=== PATIENT | male | born 2000 | race Two or more races ===

== ENCOUNTER 2025-08-08 06:05 | Emergency (ER) | payer OTHER ==
[~2025-08-08] VITALS: Ht 165.1 cm; Wt 65.8 kg
[2025-08-08 08:09] LABS: BASO % 0.3 % (0.1-1.2); EOS # 0.01 (0.04-0.54); EOS % 0.2 % (0.7-7.0); LYMPH # 0.86 (1.18-3.74); LYMPH % 13.6 % (19.3-53.1); MEAN PLATELET VOLUME 10.30 fl (9.4-12.4); MONO # 0.37 (0.24-0.82); MONO % 5.8 % (4.7-12.5); NEUT # 5.06 (1.56-6.13); NEUT % 79.9 % (34.0-71.1); RED CELL DISTRIBUTION WIDTH 11.9 % (11.6-14.4)
[2025-08-08 08:33] LABS: ALT/SGPT 104.0 U/L (12-78); AST/SGOT 74.0 U/L (15-37); BILIRUBIN TOTAL 0.62 mg/dL (0.3-1.2); BUN CREA RATIO 15.0 (7.0-25.0); CREATININE SERUM 0.94 mg/dL (0.70-1.30); GFR 98.6; GLOBULINA 4.0 G/DL (2.4-3.5); GLUCOSE FASTING 89.0 mg/dL (65-100); OSMOLALITY SERUM 283.0 MOSM/KG (275-295)
[2025-08-08 08:45] LABS: INR 0.98
[2025-08-08 09:30] LABS: URINE APPEARANCE Clear; URINE BILIRRUBIN Negative (NEGATIVE); URINE BLOOD Negative; URINE COLOR Yellow; URINE GLUCOSE Negative (NEGATIVE); URINE KETONE Trace (NEGATIVE); URINE LEUKOCYTE Negative; URINE NITRATE Negative; URINE PROTEIN Negative (NEGATIVE); URINE UROBILINOGEN 0.2 E.U./dl
[2025-08-08 09:35] LABS: URINE BACTERIA 4.5 uL (0.0-1933); URINE WBC 5.5 uL (0.0-23.2)
[2025-08-08 09:50] LABS: URINE CAST 0.00 uL (0.0-1.40); URINE EPITHELIAL CELLS 0.9 uL (0.0-38.8); URINE RBC 1.4 uL (0.0-20.8)
[2025-08-08] MEDS ORDERED: ONDANSETRON HCL 2 MG/ML VIAL IV STA (11:48)
[2025-08-08] MEDS ORDERED: 0.9 % SODIUM CHLORIDE 1,000 ML IV STA (11:48)
[2025-08-08] MEDS ORDERED: DEXAMETHASONE SODIUM PHOSPHATE 4 MG/ML VIAL IM STA (11:49)
[2025-08-08] MEDS ORDERED: MULTIVIT INFUSN,ADULT 4,VIT K 10 ML in DEXTROSE 5 % IN WATER 500 ML IV STA (11:49)
[2025-08-08] MEDS ORDERED: ORPHENADRINE CITRATE 30 MG/ML AMPUL IM STA (11:49)
[2025-08-08] MEDS ORDERED: FAMOTIDINE/PF 20 MG/2 ML VIAL IV STA (11:49)
[2025-08-08] MEDS ORDERED: KETOROLAC TROMETHAMINE 30 MG VIAL IM ONE (12:00)
[2025-08-08] MEDS ORDERED: ONDANSETRON HCL 2 MG/ML VIAL ONE (12:33)
[2025-08-08] MEDS ORDERED: ORPHENADRINE CITRATE 30 MG/ML AMPUL ONE (12:33)
[2025-08-08] MEDS ORDERED: KETOROLAC TROMETHAMINE 30 MG VIAL ONE (12:33)
[2025-08-08] MEDS ORDERED: DEXAMETHASONE SODIUM PHOSPHATE 4 MG/ML VIAL ONE ×2 (12:33→12:40)
[2025-08-08] MEDS ORDERED: FAMOTIDINE/PF 20 MG/2 ML VIAL ONE (12:34)
[2025-08-08] MEDS ORDERED: NORFLEX100MG PO (13:52)
[2025-08-08] MEDS ORDERED: IBU600 MG PO (13:52)
== END 2025-08-08 14:34 | disposition home or self-care (01) ==
LOC: ER 06:05
PROVIDERS: Physician Assistant Medical
DX: S20.219A Contusion of unspecified front wall of thorax, initial encounter (principal); S00.83XA Contusion of other part of head, initial encounter; V49.88XA Car occupant (driver) (passenger) injured in other specified transport accidents, initial encounter; V89.2XXA Person injured in unspecified motor-vehicle accident, traffic, initial encounter; Y93.89 Activity, other specified; Y92.89 Other specified places as the place of occurrence of the external cause; Y99.8 Other external cause status; F10.929 Alcohol use, unspecified with intoxication, unspecified; M25.519 Pain in unspecified shoulder
CPT/HCPCS: 36415; 70450; 71250; 72125; 73030; 74177; Q9965